=== PATIENT | male | born 1950 | race Caucasian/White ===

== ENCOUNTER 2016-10-05 06:00 | Observation (INO) | payer OTHER ==
[2016-10-05] VITALS (8 sets, daily range): BP systolic 103–153; BP diastolic 69–96; PULSE 58–112; RESP 18–20; TEMP 97.6–98.5; O2SAT 94–98
[~2016-10-05] VITALS: Ht 167.6 cm; Wt 98.4 kg
[2016-10-05] MEDS ORDERED: LEVO100T5 PO ×2 (06:16→11:41)
[2016-10-05] MEDS ORDERED: ASPI81TA81 PO (06:16)
[2016-10-05 06:20] LABS: AUTOMATED NEUTROPHIL # 3.7 TH/MM3 (1.8-7.7); BASOPHIL % 0.8 % (0.0-2.0); EOSINOPHIL # 0.1 TH/MM3 (0-0.4); EOSINOPHIL % 1.9 % (0.0-4.0); HEMATOCRIT 47.9 % (39.0-51.0); HEMO FLAGS DIFF FINAL; LYMPH % 32.5 % (9.0-44.0); MEAN CELL VOLUME 98.1 FL (80.0-100.0); MEAN CORPUSCULAR HEMOGLOBIN 32.3 PG (27.0-34.0); MEAN CORPUSCULAR HGB CONC 32.9 % (32.0-36.0); MONO % 6.7 % (0.0-8.0); NEUT % 58.1 % (16.0-70.0); PLATELET COUNT 190 TH/MM3 (150-450); RED BLOOD COUNT 4.88 MIL/MM3 (4.50-5.90); WHITE BLOOD COUNT 6.2 TH/MM3 (4.0-11.0)
--- NOTE | 2016-10-05 06:25 | PD ---
HPI Chief Complaint: Cardiac Complaint Time Seen by Provider: 06:07 Travel History International Travel<30 days: No Contact w/Intl Traveler<30days: No Traveled to known affect area: No History of Present Illness HPI The patient is a 66-year-old male that 1 hour ago fell heart palpitations. He denies any chest discomfort. He states he felt like he almost fainted at one point. He states his heart was beating fast. He is never had an irregular heartbeat or atrial fibrillation in the past. He did get very diaphoretic tonight. He denies any shortness of breath. He does have a history of hypothyroid. He does have a primary care physician but cannot remember his name at this time. He denies any shortness of breath. He did get slight nausea. He does not smoke, have hypertension or elevated cholesterol. He does not have a history of diabetes. FORMERLY [facility], [facility] Social History Tobacco Use: No Allergies-Medications (Allergen,Severity, Reaction): Coded Allergies: No Known Allergies (Unverified , 10/05/16) Reported Meds & Prescriptions Reported Meds & Active Scripts Active Aspirin 325 Mg Tab 325 Mg PO DAILY Levothyroxine (Levothyroxine Sodium) 100 Mcg Tab 100 Mcg PO DAILY Review of Systems Except as stated in HPI: all other systems reviewed are Neg Physical Exam Narrative GENERAL: The patient is alert, obese, oriented 3 in no respiratory distress. The blood pressure is 152/93, heart rate irregular at 110, temperature 98.5, respirations 18. SKIN: Warm and dry. HEAD: Atraumatic. Normocephalic. EYES: Pupils equal and round. No scleral icterus. No injection or drainage. ENT: No nasal bleeding or discharge. Mucous membranes pink and moist. NECK: Trachea midline. No JVD. CARDIOVASCULAR: Atrial fibrillation with RVR rhythm. No murmur appreciated. RESPIRATORY: No accessory muscle use. Clear to auscultation. Breath sounds equal bilaterally. GASTROINTESTINAL: Abdomen soft, non-tender, nondistended. Hepatic and splenic margins not palpable. No guarding or rebound is present. MUSCULOSKELETAL: No obvious deformities. No clubbing. No cyanosis. No edema. NEUROLOGICAL: Awake and alert. No obvious cranial nerve deficits. Motor grossly within normal limits. Normal speech. PSYCHIATRIC: Appropriate mood and affect; insight and judgment normal. Data Data Last Documented VS Vital Signs Date Time Temp Pulse Resp B/P Pulse Ox O2 Delivery O2 Flow Rate FiO2 10/05/16 07:06 70 18 103/71 95 Room Air 10/05/16 06:09 98.5 Orders Electrocardiogram (10/05/16 06:07) Ckmb (Isoenzyme) Profile (10/05/16 06:07) Complete Blood Count With Diff (10/05/16 06:07) Comprehensive Metabolic Panel (10/05/16 06:07) Magnesium (Mg) (10/05/16 06:07) Prothrombin Time / Inr (Pt) (10/05/16 06:07) Act Partial Throm Time (Ptt) (10/05/16 06:07) Troponin I (10/05/16 06:07) Ecg Monitoring (10/05/16 06:07) Bilateral Bp Monitoring (10/05/16 06:07) Iv Access Insert/Monitor (10/05/16 06:07) Oximetry (10/05/16 06:07) Oxygen Administration (10/05/16 06:07) Chest, Pa & Lat (10/05/16 06:07) B-Type Natriuretic Peptide (10/05/16 06:26) Aspirin Chew (Aspirin Chew) (10/05/16 06:30) Sodium Chloride 0.9% Flush (Ns Flush) (10/05/16 06:30) Nitroglycerin Sl (Nitrostat Sl) (10/05/16 06:30) Potassium Chloride (Kcl) (10/05/16 07:15) Thyroid Stimulating Hormone (10/05/16 06:05) Admit Order (Ed Use Only) (10/05/16 07:41) Echo 2d Comp W/Dopp(Routine) (10/05/16 ) Labs Laboratory Tests Test 10/05/16 06:05 White Blood Count 6.2 TH/MM3 Red Blood Count 4.88 MIL/MM3 Hemoglobin 15.8 GM/DL Hematocrit 47.9 % Mean Corpuscular Volume 98.1 FL Mean Corpuscular Hemoglobin 32.3 PG Mean Corpuscular Hemoglobin 32.9 % Concent Red Cell Distribution Width 13.0 % Platelet Count 190 TH/MM3 Mean Platelet Volume 7.8 FL Neutrophils (%) (Auto) 58.1 % Lymphocytes (%) (Auto) 32.5 % Monocytes (%) (Auto) 6.7 % Eosinophils (%) (Auto) 1.9 % Basophils (%) (Auto) 0.8 % Neutrophils # (Auto) 3.7 TH/MM3 Lymphocytes # (Auto) 2.0 TH/MM3 Monocytes # (Auto) 0.4 TH/MM3 Eosinophils # (Auto) 0.1 TH/MM3 Basophils # (Auto) 0.0 TH/MM3 CBC Comment DIFF FINAL Differential Comment Prothrombin Time 10.8 SEC Prothromb Time International 1.0 RATIO Ratio Activated Partial 26.3 SEC Thromboplast Time Sodium Level 143 MEQ/L Potassium Level 3.3 MEQ/L Chloride Level 107 MEQ/L Carbon Dioxide Level 29.0 MEQ/L Anion Gap 7 MEQ/L Blood Urea Nitrogen 7 MG/DL Creatinine 0.90 MG/DL Estimat Glomerular Filtration 84 ML/MIN Rate Random Glucose 135 MG/DL Calcium Level 8.4 MG/DL Magnesium Level 2.3 MG/DL Total Bilirubin 0.5 MG/DL Aspartate Amino Transf 30 U/L (AST/SGOT) Alanine Aminotransferase 38 U/L (ALT/SGPT) Alkaline Phosphatase 83 U/L Total Creatine Kinase LESS THAN 7 U/L Troponin I LESS THAN 0.02 NG/ML B-Type Natriuretic Peptide 44 PG/ML Total Protein 7.5 GM/DL Albumin 3.9 GM/DL Thyroid Stimulating Hormone 8.900 uIU/ML 3rd Gen [facility] Medical Decision Making Medical Screen Exam Complete: Yes Emergency Medical Condition: Yes Medical Record Reviewed: Yes Interpretation(s) EKG shows atrial fibrillation with rapid ventricular response and a rate of 112. No acute ST elevation or depression is present. Differential Diagnosis Atrial fib with RVR, congestive heart failure, acute coronary syndrome, electrolyte disorder, renal insufficiency Narrative Course It is now 0652 and the patient is transferred to Dr. Moralez. Procedures EKG Prior to Arrival: No Diagnosis Primary Impression: Atrial fibrillation with RVR Scripts Aspirin 325 Mg [id number] Mg PO DAILY #30 TAB Ref 0 Prov:Kalie Hernandez MD 10/05/16 Levothyroxine 100 Mcg [id number] Mcg PO DAILY #30 TAB Ref 0 Prov:Kalie Hernandez MD 10/05/16 Jethro Brasher MD Oct 05, 2016 06:25
[2016-10-05 06:27] LABS: CHLORIDE 107 MEQ/L (98-107); POTASSIUM 3.3 MEQ/L (3.5-5.1); SODIUM (NA) 143 MEQ/L (136-145)
[2016-10-05] MEDS ORDERED: SODIUM CHLORIDE 0.9% FLUSH 5 ML FLUSH IVF PRN (06:30)
[2016-10-05] MEDS ORDERED: ASPIRIN 81 MG CHEW TAB PO ONE (06:30)
[2016-10-05 06:31] LABS: ANION GAP 7 MEQ/L (5-15); APTT (PATIENT) 26.3 SEC (24.3-30.1); BLOOD UREA NITROGEN 7 MG/DL (7-18); MAGNESIUM 2.3 MG/DL (1.5-2.5); PROTHROMBIN TIME - PATIENT 10.8 SEC (9.8-11.6)
[2016-10-05] MEDS: NITROGLYCERIN 0.4 MG SL 25 TABS/BTL SL SCH ×3 (06:33→06:40)
[2016-10-05 06:34] LABS: ALT (GPT) 38 U/L (12-78); AST (GOT) 30 U/L (15-37); GLOMERULAR FILTRATION RATE 84 ML/MIN (>89)
[2016-10-05 06:36] LABS: TOTAL BILIRUBIN ADULT 0.5 MG/DL (0.2-1.0)
[2016-10-05 06:37] LABS: ALKALINE PHOSPHATASE 83 U/L (45-117)
--- NOTE | 2016-10-05 06:48 | RADHPO ---
EXAM DATE/TIME: 10/05/2016 06:32 [facility] COMPARISON: No previous studies available for comparison. INDICATIONS : Patient states chest tightness for 2 hours. MEDICAL HISTORY : None. SURGICAL HISTORY : None. ENCOUNTER: Initial ACUITY: 1 day PAIN SCORE: 2/10 LOCATION: Bilateral chest FINDINGS: No consolidation or effusion. Linear atelectasis versus scarring at the left lung base. There are deg enerative changes of the spine. CONCLUSION: Lingular atelectasis versus scarring. Eulalio Henry MD on October 05, 2016 at 6:46 Board Certified Radiologist. This report was verified electronically.
[2016-10-05 06:49] LABS: CREATINE KINASE LESS THAN 7 U/L (39-308)
--- NOTE | 2016-10-05 06:54 | PD ---
Physical Exam Date Seen by Provider: Oct 05, 2016 Time Seen by Provider: 06:51 Narrative The patient is a 66-year-old male was initially evaluated by Dr. Brasher. Please refer to the initial history, physical, diagnostic evaluation , and treatment modality plan. The patient was signed out at 7 AM with laboratory evaluation pending. Patient was noted to have new onset atrial fibrillation with RVR, complaining of diaphoresis, nausea, and dizziness. Patient has no history of atrial fibrillation. The patient's heart rate initially varied from 100-140, was not initially administered any medications for the rate as he came down into the low 100s. Patient was administered aspirin. Data Data Last Documented VS Vital Signs Date Time Temp Pulse Resp B/P Pulse Ox O2 Delivery O2 Flow Rate FiO2 10/05/16 07:06 70 18 103/71 95 Room Air 10/05/16 06:09 98.5 Orders Electrocardiogram (10/05/16 06:07) Ckmb (Isoenzyme) Profile (10/05/16 06:07) Complete Blood Count With Diff (10/05/16 06:07) Comprehensive Metabolic Panel (10/05/16 06:07) Magnesium (Mg) (10/05/16 06:07) Prothrombin Time / Inr (Pt) (10/05/16 06:07) Act Partial Throm Time (Ptt) (10/05/16 06:07) Troponin I (10/05/16 06:07) Ecg Monitoring (10/05/16 06:07) Bilateral Bp Monitoring (10/05/16 06:07) Iv Access Insert/Monitor (10/05/16 06:07) Oximetry (10/05/16 06:07) Oxygen Administration (10/05/16 06:07) Chest, Pa & Lat (10/05/16 06:07) B-Type Natriuretic Peptide (10/05/16 06:26) Aspirin Chew (Aspirin Chew) (10/05/16 06:30) Sodium Chloride 0.9% Flush (Ns Flush) (10/05/16 06:30) Nitroglycerin Sl (Nitrostat Sl) (10/05/16 06:30) Potassium Chloride (Kcl) (10/05/16 07:15) Thyroid Stimulating Hormone (10/05/16 06:05) Admit Order (Ed Use Only) (10/05/16 07:41) Echo 2d Comp W/Dopp(Routine) (10/05/16 ) Labs Laboratory Tests Test 10/05/16 06:05 White Blood Count 6.2 TH/MM3 Red Blood Count 4.88 MIL/MM3 Hemoglobin 15.8 GM/DL Hematocrit 47.9 % Mean Corpuscular Volume 98.1 FL Mean Corpuscular Hemoglobin 32.3 PG Mean Corpuscular Hemoglobin 32.9 % Concent Red Cell Distribution Width 13.0 % Platelet Count 190 TH/MM3 Mean Platelet Volume 7.8 FL Neutrophils (%) (Auto) 58.1 % Lymphocytes (%) (Auto) 32.5 % Monocytes (%) (Auto) 6.7 % Eosinophils (%) (Auto) 1.9 % Basophils (%) (Auto) 0.8 % Neutrophils # (Auto) 3.7 TH/MM3 Lymphocytes # (Auto) 2.0 TH/MM3 Monocytes # (Auto) 0.4 TH/MM3 Eosinophils # (Auto) 0.1 TH/MM3 Basophils # (Auto) 0.0 TH/MM3 CBC Comment DIFF FINAL Differential Comment Prothrombin Time 10.8 SEC Prothromb Time International 1.0 RATIO Ratio Activated Partial 26.3 SEC Thromboplast Time Sodium Level 143 MEQ/L Potassium Level 3.3 MEQ/L Chloride Level 107 MEQ/L Carbon Dioxide Level 29.0 MEQ/L Anion Gap 7 MEQ/L Blood Urea Nitrogen 7 MG/DL Creatinine 0.90 MG/DL Estimat Glomerular Filtration 84 ML/MIN Rate Random Glucose 135 MG/DL Calcium Level 8.4 MG/DL Magnesium Level 2.3 MG/DL Total Bilirubin 0.5 MG/DL Aspartate Amino Transf 30 U/L (AST/SGOT) Alanine Aminotransferase 38 U/L (ALT/SGPT) Alkaline Phosphatase 83 U/L Total Creatine Kinase LESS THAN 7 U/L Troponin I LESS THAN 0.02 NG/ML B-Type Natriuretic Peptide 44 PG/ML Total Protein 7.5 GM/DL Albumin 3.9 GM/DL Thyroid Stimulating Hormone 8.900 uIU/ML 3rd Gen [facility] Medical Record Reviewed: Yes Supervised Visit with ANNE: No Interpretation(s) Chest x-ray reveals linear atelectasis versus scarring EKG reveals a chief ablation with RVR, rate 112. Left ventricular hypertrophy. Nonspecific ST-T wave changes. Laboratory Tests Test 10/05/16 06:05 White Blood Count 6.2 TH/MM3 Red Blood Count 4.88 MIL/MM3 Hemoglobin 15.8 GM/DL Hematocrit 47.9 % Mean Corpuscular Volume 98.1 FL Mean Corpuscular Hemoglobin 32.3 PG Mean Corpuscular Hemoglobin 32.9 % Concent Red Cell Distribution Width 13.0 % Platelet Count 190 TH/MM3 Mean Platelet Volume 7.8 FL Neutrophils (%) (Auto) 58.1 % Lymphocytes (%) (Auto) 32.5 % Monocytes (%) (Auto) 6.7 % Eosinophils (%) (Auto) 1.9 % Basophils (%) (Auto) 0.8 % Neutrophils # (Auto) 3.7 TH/MM3 Lymphocytes # (Auto) 2.0 TH/MM3 Monocytes # (Auto) 0.4 TH/MM3 Eosinophils # (Auto) 0.1 TH/MM3 Basophils # (Auto) 0.0 TH/MM3 CBC Comment DIFF FINAL Differential Comment Prothrombin Time 10.8 SEC Prothromb Time International 1.0 RATIO Ratio Activated Partial 26.3 SEC Thromboplast Time Sodium Level 143 MEQ/L Potassium Level 3.3 MEQ/L Chloride Level 107 MEQ/L Carbon Dioxide Level 29.0 MEQ/L Anion Gap 7 MEQ/L Blood Urea Nitrogen 7 MG/DL Creatinine 0.90 MG/DL Estimat Glomerular Filtration 84 ML/MIN Rate Random Glucose 135 MG/DL Calcium Level 8.4 MG/DL Magnesium Level 2.3 MG/DL Total Bilirubin 0.5 MG/DL Aspartate Amino Transf 30 U/L (AST/SGOT) Alanine Aminotransferase 38 U/L (ALT/SGPT) Alkaline Phosphatase 83 U/L Total Creatine Kinase LESS THAN 7 U/L Troponin I LESS THAN 0.02 NG/ML Total Protein 7.5 GM/DL Albumin 3.9 GM/DL Differential Diagnosis Differential diagnosis includes new onset of fibrillation with RVR, congestive heart failure, cardiomyopathy, ischemic heart disease, hypothyroidism secondary to level thyroxine intake, which led abnormality. Narrative Course The patient was initially evaluated by Dr. Brasher, please refer to the initial history, physical, diagnostic evaluation, and treatment modality plan. The patient's initial EKG revealed atrial from which with RVR with a rate of 112. His heart rate initially very between 100 140, however, 7 AM was in the 60s, therefore, no AV aidan blockers were administered. The patient was administered aspirin by Dr. Brasher. TSH was sent to lab as patient has a history of hypothyroidism and is currently on levothyroxine. Chest x-ray was clear. Initial troponin was negative. The patient will be 23 hour observation , the patient will need echocardiogram to rule out thrombus, monitor for rate control, and outpatient follow-up with cardiology if serial troponins and echocardiogram are unremarkable. Patient has [employer] and is followed by Dr. Saucedo, therefore, [facility] were paged for 23 hour observation. The patient's potassium is low at 3.3, therefore, was replaced orally and magnesium level was sent to lab. Physician Communication Physician Communication [facility] were paged for 23 hour observation. I discussed the patient Dr. Hernandez who agrees with 23 hour observation. Diagnosis Primary Impression: Atrial fibrillation with RVR Additional Impression: Hypokalemia Admitting Information Admitting Physician Requests: Observation Condition: Stable Ran Moralez MD Oct 05, 2016 06:54
[2016-10-05] MEDS ORDERED: POTASSIUM CHLORIDE 20 MEQ CONTROLLED RELEASE TAB PO ONE (07:15)
[2016-10-05] MEDS ORDERED: SODIUM CHLORIDE 0.9% FLUSH 5 ML FLUSH FLUSH PRN (08:15)
[2016-10-05] MEDS ORDERED: SODIUM CHLORIDE 0.9% FLUSH 5 ML FLUSH FLUSH SCH (09:00)
[2016-10-05] MEDS ORDERED: LEVOTHYROXINE SODIUM 100 MCG TAB PO SCH (09:00)
[2016-10-05] MEDS ORDERED: ASPI325T PO (11:41)
--- NOTE | 2016-10-05 11:46 | HHI.HP ---
[facility] Service [facility] Primary Care Physician Ian Saucedo MD Admission Diagnosis new-onset atrial fibrillation with RVR, hypokalemia Diagnoses: Chief Complaint: Palpitations Travel History International Travel<30 Days: No Contact w/Intl Traveler <30 Da: No Traveled to Known Affected Are: No History of Present Illness Patient is a 66-year-old gentleman who came to the emergency room with complaints of palpitations which occurred at home and at rest. Patient says he had no chest pain but was dizzy and sweaty. These symptoms were alarming to him so he came to the emergency room and was found to be in atrial fibrillation with a rate of 112. Patient's heart rate converted back to sinus spontaneously. Patient has an episode in the past several years ago with similar symptoms and did have an outpatient Holter monitor which was unremarkable per his own report. This was done through his primary care doctor' s office. The patient has again denied chest pain symptoms are resolved spontaneously. He was taking a baby aspirin as well as Synthroid. He reports he ran out of his Synthroid and has been taking a lower dose for the last several weeks. Patient was hypokalemic also and this has been corrected in the emergency room. At this point patient is quite asymptomatic and in normal sinus rhythm. There is no further complaint. Patient will need outpatient echocardiogram and will need follow-up with his primary care provider. Review of Systems Constitutional: COMPLAINS OF: Dizziness, Night Sweats, DENIES: Diaphoretic episodes, Fatigue, Fever, Weight gain, Weight loss, Chills, Change in appetite Endocrine: DENIES: Heat/cold intolerance, Polydipsia, Polyuria, Polyphagia Eyes: DENIES: Blurred vision, Diplopia, Eye inflammation, Eye pain, Vision loss , Photosensitivity, Double Vision Ears, nose, mouth, throat: DENIES: Tinnitus, Hearing loss, Vertigo, Nasal discharge, Oral lesions, Throat pain, Hoarseness, Ear Pain, Running Nose, Epistaxis, Sinus Pain, Toothache, Odynophagia Respiratory: DENIES: Apneas, Cough, Snoring, Wheezing, Hemoptysis, Sputum production, Shortness of breath Cardiovascular: COMPLAINS OF: Palpitations, DENIES: Chest pain, Syncope, Dyspnea on Exertion, PND, Lower Extremity Edema, Orthopnea, Claudication Hematologic/lymphatic: DENIES: Bruising, Lymphadenopathy Neurologic: DENIES: Abnormal gait, Headache, Localized weakness, Paresthesias, Seizures, Speech Problems, Tremor, Poor Balance Psychiatric: COMPLAINS OF: Anxiety, Confusion, Mood changes, Depression, Hallucinations, Agitation, Suicidal Ideation, Homicidal Ideation, Delusions Past Family Social History Past Medical History Hypothyroid Past Surgical History Cholecystectomy Reported Medications Reviewed in the medical record, recently ran out of his Synthroid Allergies: Coded Allergies: No Known Allergies (Unverified , 10/05/16) Active Ordered Medications Reviewed in the medical record Family History Father at 92 but had heart failure and cardiac stents as well as throat cancer Mother at 92 from Alzheimer's Social History Lives with his significant other, no tobacco or alcohol dependency, is self- employed Physical Exam Vital Signs Vital Signs Date Time Temp Pulse Resp B/P Pulse Ox O2 Delivery O2 Flow Rate FiO2 10/05/16 09:00 97.6 58 20 135/81 98 10/05/16 07:06 70 18 103/71 95 Room Air 10/05/16 06:54 100 18 123/69 96 Room Air 10/05/16 06:45 112 18 124/90 96 Room Air 10/05/16 06:21 152/93 153/96 10/05/16 06:15 95 Room Air 10/05/16 06:15 110 18 95 Room Air 10/05/16 06:15 18 95 Room Air 10/05/16 06:09 98.5 102 18 152/93 95 Physical Exam GENERAL: This is a well-nourished, well-developed patient, in no apparent distress. SKIN: No rashes, ecchymoses or lesions. Cool and dry. HEAD: Atraumatic. Normocephalic. No temporal or scalp tenderness. EYES: Pupils equal round and reactive. Extraocular motions intact. No scleral icterus. No injection or drainage. ENT: Nose without bleeding, purulent drainage or septal hematoma. Throat without erythema, tonsillar hypertrophy or exudate. Uvula midline. Airway patent. NECK: Trachea midline. No JVD or lymphadenopathy. Supple, nontender, no meningeal signs. CARDIOVASCULAR: Regular rate and rhythm without murmurs, gallops, or rubs. RESPIRATORY: Clear to auscultation. Breath sounds equal bilaterally. No wheezes , rales, or rhonchi. GASTROINTESTINAL: Abdomen soft, non-tender, nondistended. No hepato-splenomegaly , or palpable masses. No guarding. MUSCULOSKELETAL: Extremities without clubbing, cyanosis, or edema. No joint tenderness, effusion, or edema noted. No calf tenderness. Negative Homans sign bilaterally. NEUROLOGICAL: Awake and alert. Cranial nerves II through XII intact. Motor and sensory grossly within normal limits. Five out of 5 muscle strength in all muscle groups. Normal speech. Laboratory Laboratory Tests Test 10/05/16 06:05 White Blood Count 6.2 Red Blood Count 4.88 Hemoglobin 15.8 Hematocrit 47.9 Mean Corpuscular Volume 98.1 Mean Corpuscular Hemoglobin 32.3 Mean Corpuscular Hemoglobin 32.9 Concent Red Cell Distribution Width 13.0 Platelet Count 190 Mean Platelet Volume 7.8 Neutrophils (%) (Auto) 58.1 Lymphocytes (%) (Auto) 32.5 Monocytes (%) (Auto) 6.7 Eosinophils (%) (Auto) 1.9 Basophils (%) (Auto) 0.8 Neutrophils # (Auto) 3.7 Lymphocytes # (Auto) 2.0 Monocytes # (Auto) 0.4 Eosinophils # (Auto) 0.1 Basophils # (Auto) 0.0 CBC Comment DIFF FINAL Differential Comment Prothrombin Time 10.8 Prothromb Time International 1.0 Ratio Activated Partial 26.3 Thromboplast Time Sodium Level 143 Potassium Level 3.3 Chloride Level 107 Carbon Dioxide Level 29.0 Anion Gap 7 Blood Urea Nitrogen 7 Creatinine 0.90 Estimat Glomerular Filtration 84 Rate Random Glucose 135 Calcium Level 8.4 Magnesium Level 2.3 Total Bilirubin 0.5 Aspartate Amino Transf 30 (AST/SGOT) Alanine Aminotransferase 38 (ALT/SGPT) Alkaline Phosphatase 83 Total Creatine Kinase LESS THAN 7 Troponin I LESS THAN 0.02 B-Type Natriuretic Peptide 44 Total Protein 7.5 Albumin 3.9 Thyroid Stimulating Hormone 8.900 3rd Gen Result Diagram: 10/05/1660410/05/16604 Imaging Last Impressions Chest X-Ray 10/05/16606 Signed Impressions: Service Date/Time: Wednesday, October 05, 2016 06:32 - CONCLUSION: Lingular atelectasis versus scarring. Eulalio Henry MD Assessment and Plan Problem List: (1) Atrial fibrillation with RVR ICD Code: I48.91 Status: Acute Plan: resolved spontaneously Echo within normal limits Continue aspirin 325, resume home thyroid medicine and follow-up potassium Follow-up with primary care provider (2) Hypokalemia ICD Code: E87.6 Status: Acute Plan: Potassium 3.3, status post replacement, mag normal (3) Hypothyroidism ICD Code: E03.9 Status: Acute Plan: Patient had been off his medication and taking a lower dose Assessment and Plan Discharge home Activity unrestricted Follow-up PCP October 10 Diet heart healthy New prescriptions aspirin 325 daily Code Status full code Discussed Condition With patient, ER MD Hernandez,Kalie Mauricio MD Oct 05, 2016 11:46
--- NOTE | 2016-10-05 11:47 | HHI.DCPOC ---
Discharge Care Plan Diagnosis: (1) Atrial fibrillation with RVR Goals to Promote Your Health * To prevent worsening of your condition and complications * To maintain your health at the optimal level Directions to Meet Your Goals Take your medications as prescribed Follow your dietary instruction Follow activity as directed Keep your appointments as scheduled Take your immunizations and boosters as scheduled If your symptoms worsen call your PCP, if no PCP go to Urgent Care Center or Emergency Room Smoking is Dangerous to Your Health. Avoid second hand smoke Call the 24-hour hour crisis hotline for domestic abuse at Kalie Hernandez MD Oct 05, 2016 11:47
--- NOTE | 2016-10-05 14:14 | EC ---
Study Study Date:10/05/2016 STUDY CONCLUSIONS SUMMARY - Left ventricle: The cavity size was normal. Wall thickness was normal. Systolic function was normal. The estimated ejection fraction was 65%. Wall motion was normal; there were no regional wall motion abnormalities. - Aortic valve: Mildly calcified annulus. Trileaflet; normal thickness leaflets. - Right ventricle: The cavity size was mildly dilated. Wall thickness was normal. - Tricuspid valve: Mild regurgitation. - Pulmonary arteries: Systolic pressure was mildly increased. PA peak pressure: 42mm Hg (S). If LV function is below 40, please consider prescribing an ACEI or ARB or document rationale for non-use. PROCEDURE DATA STUDY STATUS: Elective. Procedure: Transthoracic echocardiography. Image quality was good. Scanning was performed from the parasternal, apical, and subcostal acoustic windows. Study completion: The patient tolerated the procedure well. Transthoracic echocardiography. M-mode, complete 2D, complete spectral Doppler, and color Doppler. Patient status: Inpatient. CARDIAC ANATOMY LEFT VENTRICLE: The cavity size was normal. Wall thickness was normal. Systolic function was normal. The estimated ejection fraction was 65%. Wall motion was normal; there were no regional wall motion abnormalities. AORTIC VALVE: Mildly calcified annulus. Trileaflet; normal thickness leaflets. Doppler: Transvalvular velocity was within the normal range. There was no stenosis. No regurgitation. AORTA: Aortic root: The aortic root was normal in size. MITRAL VALVE: Structurally normal valve. Doppler: Transvalvular velocity was within the normal range. There was no evidence for stenosis. Trace regurgitation. LEFT ATRIUM: The atrium was normal in size. RIGHT VENTRICLE: The cavity size was mildly dilated. Wall thickness was normal. PULMONIC VALVE: Doppler: Transvalvular velocity was within the normal range. There was no evidence for stenosis. No regurgitation. TRICUSPID VALVE: Structurally normal valve. Doppler: Transvalvular velocity was within the normal range. Mild regurgitation. PULMONARY ARTERY: The main pulmonary artery was normal-sized. Systolic pressure was mildly increased. RIGHT ATRIUM: The atrium was normal in size. PERICARDIUM: There was no pericardial effusion. SYSTEMIC VEINS: Inferior vena cava: The vessel was normal in size. BASIC MEASUREMENTS ADULT NORMAL Left ventricle LV internal dimension, ED, chordal level, 45.1 mm 43-52 PLAX LV internal dimension, ES, chordal level, 32 mm 23-38 PLAX Fractional shortening, chordal level, PLAX *29 % >29 LV posterior wall thickness, ED 9.26 mm IVS/LVPW ratio, ED 1.14 <1.3 Ventricular septum Septal thickness, ED 10.6 mm Aortic valve Leaflet separation 21 mm 15-26 Right ventricle RV internal dimension, ED, PLAX 34.1 mm 19-38 BASIC MEASUREMENTS ADULT NORMAL Aortic valve Leaflet separation 21 mm 15-26 Aorta Root diameter, ED 33 mm 20-37 Left atrium Anterior-posterior dimension, ES *54 mm 19-40 LA/aortic root ratio 1.64 DOPPLER MEASUREMENTS ADULT NORMAL Main pulmonary artery Pressure, S *42 mm Hg =30 Tricuspid valve Regurgitant peak velocity 282 cm/s Peak RV-RA gradient, S 32 mm Hg Maximal regurgitant velocity 282 cm/s Systemic veins Estimated CVP 10 mm Hg Right ventricle RV pressure, S *42 mm Hg <30 LEGEND: Mean values are shown as u=mean value. Asterisk (*) france values outside specified normal range. Prepared and signed by Lori Duvall [id number]
--- NOTE | 2016-10-05 16:15 | EKG ---
Date Performed: 10/05/2016 Time Performed: 06:10:30 PTAGE: 66 years EKG: Atrial fibrillation with rapid ventricular response Left ventricular hypertrophy Extensive ST-T changes may be due to hypertrophy and/or ischemia Abnormal ECG NO PREVIOUS TRACING DOCTOR: Slim Murguia Interpretating Date/Time 10/05/2016 16:14:44
== END 2016-10-05 14:30 | disposition home or self-care (01) ==
LOC: PHED 06:00 → PHEDA 07:42 → PH3A 08:52
PROVIDERS: ADMIT Hospitalist; ATTEND Hospitalist
DX: I48.91 Unspecified atrial fibrillation (principal); E87.6 Hypokalemia; E03.9 Hypothyroidism, unspecified; R94.31 Abnormal electrocardiogram [ECG] [EKG]; Z79.82 Long term (current) use of aspirin
CPT/HCPCS: 71020; 80053; 82550; 83735; 83880; 84443; 84484; 85025; 85610; 85730; 93005; 93306; 99285; G0378

== ENCOUNTER 2017-05-10 13:52 | Emergency (ER) | payer OTHER ==
[~2017-05-10 13:52] MED LIST: ASPI325T PO; LEVO100T5 PO
[2017-05-10 14:00] VITALS: BP 154/75; PULSE 60; RESP 18; TEMP 98; O2SAT 96
--- NOTE | 2017-05-10 14:25 | PD ---
HPI Chief Complaint: Cardiac Complaint Time Seen by Provider: 13:58 Travel History International Travel<30 days: No Contact w/Intl Traveler<30days: No Traveled to known affect area: No History of Present Illness HPI This 66-year-old man who presents to the emergency department cleaning of palpitations. He is a history of palpitations and in September of this year was admitted for new onset A. fib. He's done well since then. Over the past 2-3 days that increased brief episodes of palpitations and lightheadedness. He had another episode today was driving and felt near syncopal. No chest pain. No shortness of breath. No other complaints. Only medical history is hypothyroidism for which he takes Synthroid. History Past Medical History Narrative Medical Hypothyroidism A. fib Tetanus Vaccination: Unknown Influenza Vaccination: Yes Social History Alcohol Use: No Tobacco Use: No Allergies-Medications (Allergen,Severity, Reaction): Coded Allergies: No Known Allergies (Unverified , 10/05/16) Reported Meds & Prescriptions Reported Meds & Active Scripts Active Aspirin 325 Mg Tab 325 Mg PO DAILY Levothyroxine (Levothyroxine Sodium) 100 Mcg Tab 100 Mcg PO DAILY Review of Systems Except as stated in HPI: all other systems reviewed are Neg Physical Exam Narrative GENERAL: Well-appearing 66-year-old man, no acute distress. SKIN: Focused skin assessment warm/dry. HEAD: Atraumatic. Normocephalic. EYES: Pupils equal and round. No scleral icterus. No injection or drainage. ENT: No nasal bleeding or discharge. Mucous membranes pink and moist. NECK: Trachea midline. No JVD. CARDIOVASCULAR: Regular rate and rhythm. No murmur appreciated. RESPIRATORY: No accessory muscle use. Clear to auscultation. Breath sounds equal bilaterally. GASTROINTESTINAL: Abdomen soft, non-tender, nondistended. Hepatic and splenic margins not palpable. MUSCULOSKELETAL: No obvious deformities. No clubbing. No cyanosis. No edema. NEUROLOGICAL: Awake and alert. No obvious cranial nerve deficits. Motor grossly within normal limits. Normal speech. PSYCHIATRIC: Appropriate mood and affect; insight and judgment normal. Data Data Last Documented VS Vital Signs Date Time Temp Pulse Resp B/P (MAP) Pulse Ox O2 Delivery O2 Flow Rate FiO2 05/10/17 15:17 86 16 130/66 (87) 100 Room Air 05/10/17 14:00 98.0 Orders Orders Electrocardiogram (05/10/17 14:14) Complete Blood Count With Diff (05/10/17 14:14) Comprehensive Metabolic Panel (05/10/17 14:14) Magnesium (Mg) (05/10/17 14:14) Troponin I (05/10/17 14:14) Thyroid Stimulating Hormone (05/10/17 14:14) Labs Laboratory Tests Test 05/10/17 14:20 White Blood Count 5.6 TH/MM3 Red Blood Count 4.65 MIL/MM3 Hemoglobin 14.9 GM/DL Hematocrit 45.0 % Mean Corpuscular Volume 96.8 FL Mean Corpuscular Hemoglobin 31.9 PG Mean Corpuscular Hemoglobin Concent 33.0 % Red Cell Distribution Width 13.8 % Platelet Count 183 TH/MM3 Mean Platelet Volume 8.1 FL Neutrophils (%) (Auto) 66.3 % Lymphocytes (%) (Auto) 25.4 % Monocytes (%) (Auto) 6.1 % Eosinophils (%) (Auto) 1.9 % Basophils (%) (Auto) 0.3 % Neutrophils # (Auto) 3.8 TH/MM3 Lymphocytes # (Auto) 1.4 TH/MM3 Monocytes # (Auto) 0.3 TH/MM3 Eosinophils # (Auto) 0.1 TH/MM3 Basophils # (Auto) 0.0 TH/MM3 CBC Comment DIFF FINAL Differential Comment Blood Urea Nitrogen 10 MG/DL Creatinine 0.75 MG/DL Random Glucose 106 MG/DL Total Protein 6.4 GM/DL Albumin 3.4 GM/DL Calcium Level 8.0 MG/DL Magnesium Level 2.2 MG/DL Alkaline Phosphatase 64 U/L Aspartate Amino Transf (AST/SGOT) 31 U/L Alanine Aminotransferase (ALT/SGPT) 25 U/L Total Bilirubin 0.5 MG/DL Sodium Level 141 MEQ/L Potassium Level 4.0 MEQ/L Chloride Level 108 MEQ/L Carbon Dioxide Level 25.7 MEQ/L Anion Gap 7 MEQ/L Estimat Glomerular Filtration Rate 104 ML/MIN Troponin I LESS THAN 0.02 NG/ML Thyroid Stimulating Hormone 3rd Gen 2.570 uIU/ML [facility] Medical Decision Making Medical Screen Exam Complete: Yes Emergency Medical Condition: Yes Interpretation(s) My review of EKG: Normal sinus rhythm at a rate of 60, leftward axis, LVH, no definite evidence of acute ischemia. LABS unremarkable. Differential Diagnosis A. fib, arrhythmia, palpitations, electrolyte abnormality, PE, ACS, anxiety, other Narrative Course Medical decision making 66-year-old male palpitations and a history of A. fib. Looks well now. Sinus rhythm now. We'll check screening labs. Likely outpatient follow-up with a industrial spraypainter. Diagnosis Primary Impression: Palpitations Referrals: Angi Guillen MD 1 week Patient Instructions: General Instructions Additional Instructions: Follow-up with a industrial spraypainter in the next week or so. Return to the emergency department for any chest pain, shortness of breath, or syncopal episode/passing out. Med/Other Pt SpecificInfo: No Change to Meds Disposition: 01 DISCHARGE HOME Condition: Stable Kayode Das MD May 10, 2017 14:25
[2017-05-10 14:33] LABS: AUTOMATED NEUTROPHIL # 3.8 TH/MM3 (1.8-7.7); BASOPHIL % 0.3 % (0.0-2.0); EOSINOPHIL # 0.1 TH/MM3 (0-0.4); EOSINOPHIL % 1.9 % (0.0-4.0); HEMO FLAGS DIFF FINAL; LYMPH % 25.4 % (9.0-44.0); LYMPHOCYTE # 1.4 TH/MM3 (1.0-4.8); MEAN CELL VOLUME 96.8 FL (80.0-100.0); MEAN CORPUSCULAR HEMOGLOBIN 31.9 PG (27.0-34.0); MONO % 6.1 % (0.0-8.0); NEUT % 66.3 % (16.0-70.0); PLATELET COUNT 183 TH/MM3 (150-450); RED BLOOD COUNT 4.65 MIL/MM3 (4.50-5.90); RED CELL DISTRIBUTION WIDTH 13.8 % (11.6-17.2); WHITE BLOOD COUNT 5.6 TH/MM3 (4.0-11.0)
[2017-05-10 14:43] LABS: CHLORIDE 108 MEQ/L (98-107); SODIUM (NA) 141 MEQ/L (136-145)
[2017-05-10 14:46] LABS: ANION GAP 7 MEQ/L (5-15); BICARBONATE 25.7 MEQ/L (21.0-32.0); BLOOD UREA NITROGEN 10 MG/DL (7-18); MAGNESIUM 2.2 MG/DL (1.5-2.5)
[2017-05-10 14:49] LABS: ALT (GPT) 25 U/L (12-78); AST (GOT) 31 U/L (15-37)
[2017-05-10 14:50] LABS: GLOMERULAR FILTRATION RATE 104 ML/MIN (>89)
[2017-05-10 14:51] LABS: TOTAL BILIRUBIN ADULT 0.5 MG/DL (0.2-1.0)
[2017-05-10 14:52] LABS: ALKALINE PHOSPHATASE 64 U/L (45-117)
[2017-05-10 15:17] VITALS: BP 130/66; PULSE 86; RESP 16; O2SAT 100
--- NOTE | 2017-05-11 09:58 | EKG ---
Date Performed: 05/10/2017 Time Performed: 14:04:35 PTAGE: 66 years EKG: Sinus rhythm VOLTAGE CRITERIA FOR LVH NONSPECIFIC T-WAVE ABNORMALITY ABNORMAL ECG INTERPRETATION BASED ON A DEFAU LT AGE OF 39 YEARS NO PREVIOUS TRACING DOCTOR: Kayode Boyce Interpretating Date/Time 05/11/2017 09:56:06
== END 2017-05-10 15:46 | disposition home or self-care (01) ==
LOC: PHED 13:52
DX: R00.2 Palpitations (principal); R42 Dizziness and giddiness; R94.31 Abnormal electrocardiogram [ECG] [EKG]; E03.9 Hypothyroidism, unspecified; Z86.79 Personal history of other diseases of the circulatory system
CPT/HCPCS: 80053; 83735; 84443; 84484; 85025; 93005